=== PATIENT | male | born 1985 | race Caucasian/White ===

== ENCOUNTER 2022-08-09 23:21 | Emergency (ER) | payer MEDICAID ==
[~2022-08-09] VITALS: Ht 182.9 cm; Wt 99.8 kg
--- NOTE | 2022-08-09 23:50 | NUR ---
[id number] FROM HOME C/O N/V/D X1DAY. AXO4 AMBULATORY. C/O ABD PAIN 12/30.
[2022-08-09] MEDS ORDERED: ONDANSETRON HCL/PF 4 MG/2 ML VIAL ONE (23:52)
[2022-08-09] MEDS ORDERED: MORPHINE SULFATE INJ 4 MG/ML DISP.SYRIN ONE (23:52)
[2022-08-10] MEDS ORDERED: IV NS 0.9% 1,000 ML BAG IV ONE
[2022-08-10] MEDS ORDERED: MAG HYDROX/AL HYDROX/SIMETH 30 ML UDC PO ONE
[2022-08-10] MEDS ORDERED: ONDANSETRON HCL/PF 4 MG/2 ML VIAL IVP ONE
[2022-08-10] MEDS ORDERED: MORPHINE SULFATE INJ 2 MG/ML DISP.SYRIN IV ONE
[2022-08-10] MEDS ORDERED: LIDOCAINE VISCOUS 2% UD 15 ML UDC MM ONE
--- NOTE | 2022-08-10 00:06 | NUR ---
IV STARTED R AC 20G
[2022-08-10 00:30] LABS: BASOPHILS # (AUTO) 0.2 K/uL (0.0-0.2); BASOPHILS % (AUTO) 1.2 % (0.0-2.0); EOSINOPHILS % (AUTO) 0.9 % (0.0-6.0); HEMATOCRIT 54 % (39-51); HEMOGLOBIN 18.3 g/dL (13.5-17.5); LYMPHOCYTES # (AUTO) 0.7 K/uL (0.8-4.8); MEAN CORPUSCULAR HGB CONC 34 g/dl (31.0-36.0); MEAN CORPUSCULAR VOLUME 90 fL (80-96); MONOCYTES # (AUTO) 1.3 K/uL (0.1-1.30); MONOCYTES % (AUTO) 7.4 % (2.0-12.0); NEUTROPHILS # (AUTO) 15.2 K/uL (1.8-8.9); NEUTROPHILS % (AUTO) 86.5 % (43.0-81.0); PLATELET COUNT (AUTO) 309 K/uL (150-450); RED BLOOD CELL COUNT(AUTO) 5.97 MIL/uL (4.5-6.0); WHITE BLOOD COUNT (AUTO) 17.5 K/uL (4.3-11.0)
--- NOTE | 2022-08-10 00:37 | NUR ---
PT TAKEN TO PT
[2022-08-10 00:42] LABS: ALBUMIN 4.5 g/dL (3.4-5.0); BILIRUBIN,DIRECT 0.2 mg/dL (0.0-0.2); BILIRUBIN,TOTAL 0.5 mg/dL (0.2-1.0); CREATININE 1.4 mg/dL (0.6-1.3); POTASSIUM 4.6 mmol/L (3.5-5.1); TOTAL PROTEIN, SERUM 8.3 g/dL (6.4-8.2)
--- NOTE | 2022-08-10 00:50 | NUR ---
PT RETURNED FROM CT
--- NOTE | 2022-08-10 01:56 | NUR ---
URINE SAMPLE COLLECTED SENT TO LAB
[2022-08-10 02:21] LABS: BILIRUBIN,URINE NEGATIVE (NEGATIVE); COLOR,URINE YELLOW (YELLOW); LEUKOCYTE ESTERASE ,URINE NEGATIVE (NEGATIVE); NITRITE, URINE NEGATIVE (NEGATIVE); PH,URINE 5.5 (5.0-8.0); PROTEIN,URINE NEGATIVE (NEGATIVE); UGLUCOSE NEGATIVE (NEGATIVE); UROBILINOGEN,URINE 0.2 EU/dL (0.2)
[2022-08-10] MEDS ORDERED: ONDA4TAB5 PO (03:11)
[2022-08-10] MEDS ORDERED: METR500T PO (03:11)
[2022-08-10] MEDS ORDERED: CIPR-262 PO (03:11)
[2022-08-10] MEDS ORDERED: CIPROFLOXACIN HCL 500 MG TABLET ONE (03:13)
[2022-08-10] MEDS ORDERED: METRONIDAZOLE 500 MG TABLET ONE (03:13)
--- NOTE | 2022-08-10 03:23 | NUR ---
Patient discharged to home in stable condition. Written and verbal after care instructions given. Patient verbalizes understanding of instruction.IV removed. Catheter intact and site benign. Pressure and 4x4 applied to site. No bleeding noted.
[2022-08-10 03:24] VITALS: BP 129/77
[2022-08-10] MEDS ORDERED: CIPROFLOXACIN HCL 500 MG TABLET PO ONE (03:30)
[2022-08-10] MEDS ORDERED: METRONIDAZOLE 500 MG TABLET PO ONE (03:30)
== END 2022-08-10 03:24 | disposition home or self-care (01) ==
LOC: ER 23:30
DX: K65.4 Sclerosing mesenteritis (principal); K52.9 Noninfective gastroenteritis and colitis, unspecified; Z79.899 Other long term (current) drug therapy; Z60.2 Problems related to living alone
CPT/HCPCS: 99285; 74176; 36415; 96374; 96361; 96375; 85025; 80048; 83690; 80076; 81003; J2270; J2405; J7030